=== PATIENT | female | born 1940 | race Caucasian/White ===

== ENCOUNTER 2016-06-23 11:26 | Emergency (ER) | payer MEDICARE ==
[~2016-06-23] VITALS: Ht 162.6 cm; Wt 87.0 kg
[~2016-06-23 11:26] MED LIST: ACTO15TA6 PO; ASPI81 PO; BENI40TA30 PO; GLUC500C3 PO; GNP1000T4 PO; METF-324 PO; METO25 PO; OMEP20CA5 PO; ZOCO80TA PO; ZOLE5P IV
[2016-06-23 11:28] VITALS: BP 178/81; PULSE 78; RESP 15; TEMP 98.1; O2SAT 98
--- NOTE | 2016-06-23 11:38 | PD ---
HPI Chief Complaint: Injury Time Seen by Provider: 11:37 Travel History International Travel<30 days: No Contact w/Intl Traveler<30days: No Traveled to known affect area: No History of Present Illness HPI 75-year-old female presents the emergency department with right knee pain for the past several days. The patient states she first her knee while rolling over in bed, and it "popped" and had pain. It seemed to improve, until last night when she turned and twisted her knee. She had sudden onset pain with what she said was a popping tearing sound last evening. The knee never substantially swelled, but she did wrap it with an Oziel bandage and stay off of it. She is now to having difficulty bearing weight on the right leg. She denies numbness tingling or weakness in the lower extremity on the right. She has no other medical complaints. She is allergic to bee stings. PFSH Past Medical History Arthritis: Yes Anxiety: Yes Depression: Yes Heart Rhythm Problems: No Cancer: Yes (LEFT BREAST) Cardiac Catheterization: No Cardiovascular Problems: Yes (TACHY) High Cholesterol: Yes Chemotherapy: Yes Congestive Heart Failure: No Coronary Artery Disease: Yes (BREAST) Diabetes: Yes Diminished Hearing: No Endocrine: Yes Gastrointestinal Disorders: Yes (HX ESOPH. STRICTURE/ DILATION) GERD: Yes Genitourinary: Yes (PROLAPSED BLADDER 1979) Hepatitis: No Hypertension: Yes Immune Disorder: No Musculoskeletal: No Neurologic: Yes (ABNL LEFT BRAIN PER MRI, HX VERTIGO) Psychiatric: Yes (DEPRESSION/ANXIETY) Reproductive: No Respiratory: No Myocardial Infarction: No Radiation Therapy: Yes Thyroid Disease: No Menopausal: Yes Tubal Ligation: Yes Past Surgical History Abdominal Surgery: Yes (LAP. KELI) AICD: No Appendectomy: Yes Cardiac Surgery: No Coronary Artery Bypass Graft: No Ear Surgery: No Endocrine Surgery: No Eye Surgery: Yes (RIGHT CATARACT EXTRACT.) Gynecologic Surgery: Yes (TUBAL LIG.) Joint Replacement: No Oral Surgery: Yes (T&A) Pacemaker: No Thoracic Surgery: No Tonsillectomy: Yes Other Surgery: Yes (27 lymph nodes removed left side) Social History Alcohol Use: No Tobacco Use: No Substance Use: No Allergies-Medications (Allergen,Severity, Reaction): Coded Allergies: Bee Sting (Verified Allergy, Severe, RESPIRATORY DISTRESS, 06/23/16) Reported Meds & Prescriptions Reported Meds & Active Scripts Active Reported Omeprazole 20 Mg Tab 20 Mg PO DAILY Benicar (Olmesartan) 20 Mg Tab 20 Mg PO DAILY Actos (Pioglitazone HCl) 15 Mg Tab 15 Mg PO DAILY Metoprolol Tartrate 25 Mg Tab 25 Mg PO BID Metformin (Metformin HCl) 1,000 Mg Tab 1,000 Mg PO BIDPC With meals Simvastatin 80 Mg Tab 80 Mg PO DAILY Reclast Inj (Zoledronic Acid) 5 Mg/100 Ml Inj 5 Mg IV Q365D Aspirin 81 Mg Tabdr 81 Mg PO DAILY Review of Systems Except as stated in HPI: all other systems reviewed are Neg General / Constitutional: No: Fever Eyes: No: Visual changes HENT: No: Headaches Cardiovascular: No: Chest Pain or Discomfort Respiratory: No: Shortness of Breath Gastrointestinal: No: Abdominal Pain Genitourinary: No: Dysuria Musculoskeletal: Positive: Arthralgias, Limited ROM, Pain (see history present illness.) Skin: No Rash Neurologic: No: Weakness Psychiatric: No: Depression Endocrine: No: Polydipsia Hematologic/Lymphatic: No: Easy Bruising Physical Exam Narrative GENERAL: Patient appears in no acute distress. SKIN: Warm and dry. Normal color. Normal turgor. HEAD: Atraumatic. Normocephalic. EYES: Pupils equal and round. No scleral icterus. No injection or drainage. ENT: No nasal bleeding or discharge. Mucous membranes pink and moist. Pharynx is clear. NECK: Trachea midline. Neck is supple and nontender. CARDIOVASCULAR: Regular rate and rhythm. RESPIRATORY: No accessory muscle use. Clear to auscultation. Breath sounds equal bilaterally. MUSCULOSKELETAL: Extremities without clubbing, cyanosis, or edema. No obvious deformities. Right knee appears normal without significant effusion or obvious deformity. Range of motion is slightly limited secondary to discomfort. Question positive Manuel's test. No significant laxity is appreciated. Negative drawer test. NEUROLOGICAL: Awake and alert. No obvious cranial nerve deficits. Motor grossly within normal limits. Five out of 5 muscle strength in the arms and legs. Normal speech. PSYCHIATRIC: Appropriate mood and affect; insight and judgment normal. Data Data Last Documented VS Vital Signs Date Time Temp Pulse Resp B/P Pulse Ox O2 Delivery O2 Flow Rate FiO2 06/23/16 11:41 98 Room Air 06/23/16 11:28 98.1 78 15 178/81 Orders Knee, Complete (4vws) (06/23/16 11:47) Ice/Cold Pack (06/23/16 11:47) Ketorolac Inj (Toradol Inj) (06/23/16 12:00) Support Splint (06/23/16 11:47) MDM Medical Decision Making Medical Screen Exam Complete: Yes Emergency Medical Condition: Yes Differential Diagnosis Right knee pain. Right knee effusion. Possible cartilage tear. Arthritis. Possible fracture. Narrative Course Patient is medically stable at time of exam. Patient is given Toradol 60 mg IM. X-ray of the right knee is obtained. X-ray shows small effusion and arthritis but no other acute findings per radiologist. Patient is placed in a knee immobilizer and able to ambulate. Patient is given a prescription for ibuprofen 600 mg 4 times a day #40. Patient also given acetaminophen 325 mg 2 tabs every 6 hours when necessary pain #40. Patient is to elevate and use ice as discussed. Patient should follow with her orthopedist as needed as discussed. Diagnosis Primary Impression: Effusion of right knee joint Patient Instructions: General Instructions, Knee Immobilizer (ED), Knee Sprain (ED) Additional Instructions: X-ray shows small effusion and arthritis but no other acute findings per radiologist. Patient is placed in a knee immobilizer and able to ambulate. Patient is given a prescription for ibuprofen 600 mg 4 times a day #40. Patient also given acetaminophen 325 mg 2 tabs every 6 hours when necessary pain #40. Patient is to elevate and use ice as discussed. Patient should follow with her orthopedist as needed as discussed. Med/Other Pt SpecificInfo: Prescription(s) given Scripts Ibuprofen 600 Mg [id number] Mg PO Q6H PRN (Pain/Inflammation) #40 TAB Prov:Phil Magdaleno MD 06/23/16 Acetaminophen 325 Mg [id number] Mg PO Q6HR PRN (PAIN SCALE 4 TO 10) #40 TAB Prov:Phil Magdaleno MD 06/23/16 Disposition: 01 DISCHARGE HOME Condition: Stable John iRvera Jun 23, 2016 11:38
[2016-06-23] MEDS ORDERED: OMEP20TA PO (11:46)
[2016-06-23] MEDS ORDERED: ACTO15TA11 PO (11:46)
[2016-06-23] MEDS ORDERED: ZOLE5P IV (11:46)
[2016-06-23] MEDS ORDERED: BENI20TA5 PO (11:46)
[2016-06-23] MEDS ORDERED: METF1000 PO (11:46)
[2016-06-23] MEDS ORDERED: SIMV80TA PO (11:46)
[2016-06-23] MEDS ORDERED: METO25TA3 PO (11:46)
[2016-06-23] MEDS ORDERED: ASPI1TAB69 PO (11:46)
[2016-06-23] MEDS ORDERED: KETOROLAC TROMETHAMINE 60 MG/2 ML (IM) VIAL IM ONE (12:00)
--- NOTE | 2016-06-23 12:17 | RADRPT ---
EXAM DATE/TIME: 06/23/2016 12:13 [facility] COMPARISON: No previous studies available for comparison. INDICATIONS : Right Knee Pain after twisting injury, posterior aspect most painful. MEDICAL HISTORY : None. SURGICAL HISTORY : None. ENCOUNTER: Initial ACUITY: 1 day PAIN SCORE: 7/10 LOCATION: Right Knee. FINDINGS: Four view examination of the right knee demonstrates no evidence of fracture or dislocation. Bony mi neralization is normal. The articular surfaces are intact. There is a small joint effusion. CONCLUSION: Small joint effusion. Otherwise, normal examination for a patient of this age. Epifanio Valencia MD on June 23, 2016 at 12:15 Board Certified Radiologist. This report was verified electronically.
[2016-06-23] MEDS ORDERED: IBUP-232 PO (12:23)
[2016-06-23] MEDS ORDERED: ACET325T PO (12:23)
== END 2016-06-23 12:44 | disposition home or self-care (01) ==
LOC: NEPC 11:26
DX: M25.461 Effusion, right knee (principal); E78.00 Pure hypercholesterolemia, unspecified; E11.9 Type 2 diabetes mellitus without complications; K21.9 Gastro-esophageal reflux disease without esophagitis; I10 Essential (primary) hypertension; X50.9XXA Other and unspecified overexertion or strenuous movements or postures, initial encounter; Y93.89 Activity, other specified; Y92.003 Bedroom of unspecified non-institutional (private) residence as the place of occurrence of the external cause; Y99.9 Unspecified external cause status
CPT/HCPCS: 73564; 96374; 99283; J1885; L1830